=== PATIENT | female | born 1970 | race Caucasian/White ===

== ENCOUNTER → 2016-08-13 | Outpatient (CLI) | payer OTHER ==
--- NOTE | 2016-08-13 15:06 | DX ---
Portable AP chest. August 13, 2016At 1432 History: Central catheter placement. Findings: There has been placement of a right-sided central venous catheter projected over the SVC, a nd terminating at the mid SVC level, without pneumothorax. Lungs are clear. Heart size is normal. Impression: Right-sided central venous catheter placement without pneumothorax.
== END ==
LOC: FIMAGING 14:28
PROVIDERS: ATTEND Surgery
DX: Z45.2 Encounter for adjustment and management of vascular access device (principal)

== ENCOUNTER → 2017-01-04 | Outpatient (CLI) | payer OTHER | LOC: FIMAGING 14:45 | PROVIDERS: ATTEND Surgery | DX: Z45.2 Encounter for adjustment and management of vascular access device (principal); M79.602 Pain in left arm ==